=== PATIENT | male | born 1995 | race Caucasian/White ===

== ENCOUNTER 2019-05-04 11:40 | Emergency (ER) | payer OTHER ==
[2019-05-04] MEDS ORDERED: Fluorescein 0.6 MG Ophth Strip EYELF ONE (11:56)
[2019-05-04] MEDS ORDERED: Proparacaine 0.5% Ophth Soln 15 ML Bottle EYERT ONE (12:01)
[2019-05-04] MEDS ORDERED: Erythromycin Base 0.5% Ophth Oint 1 GM Tube EYEBOTH ONE (12:16)
--- NOTE | 2019-05-04 12:23 | EDM.PDOC ---
ED HPI GENERAL MEDICAL PROBLEM - General Chief Complaint: Eye Problems Stated Complaint: FB IN EYE Time Seen by Provider: 05/04/19 11:56 Source of Information: Reports: Patient, RN Notes Reviewed History Limitations: Reports: No Limitations - History of Present Illness INITIAL COMMENTS - FREE TEXT/NARRATIVE: Patient is a 23-year-old male presents to the ED for the evaluation of a right eye complaint. Patient states he was in [place] and was helping unload a barley truck 2-3 days ago when he felt some particles of barley fly into his right eye. He states there has been some pain since then but he states that the scratching and pain has been worsening every day since the accident. He denies any blurred vision at this time, he does not wear any contacts or corrective lenses for vision. Patient denies any other symptoms that he might be having. Right Eye Pain Score (Numeric/FACES): 8 - Related Data Allergies Allergy/AdvReac Type Severity Reaction Status Date / Time No Known Allergies Allergy Verified 05/04/19 11:48 Home Meds: Home Meds Ketorolac [Acular 0.5% Ophth Soln] 1 drop OP Q6H PRN #1 bottle 05/04/19 [Rx] Mdi 1 puff INH DAILY 05/04/19 [History] Mdi 2 puff INH ASDIRECTED 05/04/19 [History] Past Medical History Respiratory History: Reports: Asthma Social & Family History - Tobacco Use Smoking Status *Q: Never Smoker Second Hand Smoke Exposure: No - Caffeine Use Caffeine Use: Reports: Soda - Recreational Drug Use Recreational Drug Use: No ED ROS GENERAL - Review of Systems Review Of Systems: ROS reveals no pertinent complaints other than HPI. HEENT: Reports: Eye Pain. Denies: Contact Lenses, Eye Discharge, Glasses ED EXAM GENERAL W FULL EYE - Physical Exam Exam: See Below Exam Limited By: No Limitations General Appearance: Alert, WD/WN, No Apparent Distress Eye Exam: Right Eye: Conjunctival Injection, Corneal Abrasion (R inner eye, roughly 4 o'clock), Left Eye: Normal Inspection, Bilateral Eye: EOMI, PERRL Eyelids: Bilateral: Normal Appearance, Lid Everted for Exam Conjunctiva & Sclera: Right: Injected, Left: Normal Appearance Cornea Exam: Right: Corneal Abrasion (R inner eye roughly 4 o'clock), Left: Examined with Flourescein Extraocular Movements: Bilateral: Intact Pupils: Normal Accommodation Pupillary Size: Bilateral: 3 mm Pupillary Reaction: Bilateral: Brisk Anterior Chamber: Bilateral: Normal Appearance Respiratory/Chest: No Respiratory Distress, Lungs Clear, Normal Breath Sounds, No Accessory Muscle Use, Chest Non-Tender Cardiovascular: Normal Peripheral Pulses, Regular Rate, Rhythm, No Murmur Extremities: Normal Inspection, Normal Capillary Refill Neurological: Alert, Oriented, Normal Cognition, No Motor/Sensory Deficits Psychiatric: Normal Affect, Normal Mood Skin Exam: Warm, Dry, Intact, Normal Color, No Rash Course - Vital Signs Last Recorded V/S: Last Vital Signs Temp 98.3 F 05/04/19 11:45 Pulse 77 05/04/19 11:45 Resp 16 05/04/19 11:45 BP 119/79 05/04/19 11:45 Pulse Ox 98 05/04/19 11:45 - Orders/Labs/Meds Meds: Medications Discontinued Medications Generic Name Dose Route Start Last Admin Trade Name Freq PRN Reason Stop Dose Admin Erythromycin 1 gm 05/04/19 12:16 05/04/19 12:31 Erythromycin 0.5% Ophth Oint EYEBOTH 05/04/19 12:17 1 gm ONETIME ONE Administration Fluorescein Sodium 0.6 mg 05/04/19 11:56 05/04/19 12:05 Ful-Jane EYELF 05/04/19 11:57 0.6 mg ONETIME ONE Administration Proparacaine HCl 1 ml 05/04/19 12:01 05/04/19 12:05 Proparacaine 0.5% Ophth Soln EYERT 05/04/19 12:02 1 ml ONETIME ONE Administration - Re-Assessments/Exams Free Text/Narrative Re-Assessment/Exam: 05/04/19 12:28 Patient presents to the ED for the evaluation of a foreign body in his eye. His right eye was examined with Contreras and under the slit lamp and a abrasion was identified to the right inner eye at roughly 4 o'clock position. We'll have the nurse teach him how to use the erythromycin ointment, and have provided him a prescription of ketorolac eyedrops for pain relief. Departure - Departure Time of Disposition: 12:20 Disposition: Home, Self-Care 01 Condition: Fair Clinical Impression: Corneal abrasion Qualifiers: Encounter type: initial encounter Laterality: right Qualified Code(s): S05.01XA - Injury of conjunctiva and corneal abrasion without foreign body, right eye, initial encounter - Discharge Information *PRESCRIPTION DRUG MONITORING PROGRAM REVIEWED*: No *COPY OF PRESCRIPTION DRUG MONITORING REPORT IN PATIENT JANE: No Prescriptions: Ketorolac [Acular 0.5% Ophth Soln] 1 drop OP Q6H PRN #1 bottle PRN Reason: Pain Instructions: Corneal Abrasion, [id number] Referrals: PCP,None [Primary Care Provider] - Forms: ED Department Discharge, ED Return to Work/School Form Additional Instructions: You have been evaluated in the ED today for a foreign body sensation in your eye. You were identified to have a corneal abrasion to the right inner eye. You were given some pain drops for your eye, ketorolac, please instill 2 drops to the right eye every 6 hours for the next 24 hours at least. You may use this up to 2-3 days if needed. Please use the erythromycin ointment, 1 cm ribbon to the lower right eyelid margin 4 times daily for the next 3-5 days as well. Recommend that you follow up with optometry on Monday for a more thorough evaluation and to make sure that everything is healing appropriately. You will have to call around and schedule yourself an appointment with the next available provider. Please return to the ED if your symptoms should change or worsen.
== END 2019-05-04 12:47 | disposition home or self-care (01) ==
LOC: JD.ED 11:40
DX: S05.01XA Injury of conjunctiva and corneal abrasion without foreign body, right eye, initial encounter (principal); J45.909 Unspecified asthma, uncomplicated; Z79.51 Long term (current) use of inhaled steroids
CPT/HCPCS: 99283; A9270